=== PATIENT | female | born 1955 | race Two or more races ===

== ENCOUNTER 2016-04-15 19:33 | Emergency (ER) | payer OTHER ==
[~2016-04-15] VITALS: Ht 162.6 cm; Wt 72.6 kg
[2016-04-15] MEDS ORDERED: IV NS 0.9% 500 ML BAG IV ONE (20:00)
[2016-04-15] MEDS ORDERED: KETOROLAC TROMETHAMINE INJ 30 MG/ML VIAL IV ONE (20:00)
[2016-04-15 20:01] LABS: BASOPHILS % (AUTO) 0.4 % (0.0-2.0); DIFF TOTAL % 100 %; EOSINOPHILS # (AUTO) 0.2 /CMM (0.0-0.7); EOSINOPHILS % (AUTO) 1.9 % (0.0-6.0); HEMATOCRIT 38 % (33-45); HEMOGLOBIN 12.9 g/dL (11.5-14.8); LYMPHOCYTES # (AUTO) 3.7 /CMM (0.8-4.8); LYMPHOCYTES % (AUTO) 45.5 % (20.0-44.0); MEAN CORPUSCULAR HEMOGLOBIN 30 PG (26.0-33.0); MEAN CORPUSCULAR HGB CONC 34 g/dl (31.0-36.0); MEAN CORPUSCULAR VOLUME 87 fL (82-100); MONOCYTES # (AUTO) 0.6 /CMM (0.1-1.30); MONOCYTES % (AUTO) 6.7 % (2.0-12.0); NEUTROPHILS # (AUTO) 3.7 /CMM (1.8-8.9); NEUTROPHILS % (AUTO) 45.5 % (43.0-81.0); PLATELET COUNT (AUTO) 364 /CMM (150-450); RED BLOOD CELL COUNT(AUTO) 4.37 MIL/uL (4.0-5.2); WHITE BLOOD COUNT (AUTO) 8.2 K/uL (4.3-11.0)
[2016-04-15] MEDS ORDERED: KETOROLAC TROMETHAMINE 15 MG/ML VIAL ONE (20:04)
[2016-04-15] MEDS ORDERED: IV NS 0.9% 500 ML IV ONE (20:05)
[2016-04-15] MEDS ORDERED: IV SET PRIMARY 1 EA INFUS.SET MC ONE (20:05)
[2016-04-15 20:11] LABS: ANION GAP 10 (5-14); CALCIUM, SERUM 8.6 mg/dL (8.5-10.1); CARBON DIOXIDE 30 mmol/L (21-32); CHLORIDE 105 mmol/L (98-107); CREATININE 0.9 mg/dL (0.6-1.3); GFR 64 mL/min (>60); GLUCOSE 107 mg/dL (74-106); SODIUM SERUM 141 mmol/L (136-145); UREA NITROGEN, BLOOD 21 mg/dL (7-18)
[2016-04-15 20:15] LABS: INR 0.93 (0.87-1.13); PROTHROMBIN TIME 9.8 SECS (9.5-12.7)
[2016-04-15 20:21] LABS: TROPONIN I < 0.017 ng/mL (0.00-0.056)
[2016-04-15 21:17] VITALS: BP 110/69
== END 2016-04-15 21:17 | disposition home or self-care (01) ==
LOC: ER 19:35
DX: R07.89 Other chest pain (principal); E03.9 Hypothyroidism, unspecified
CPT/HCPCS: 36415; 71010; 80048; 84484; 85025; 85730; 93005; 96374; 99285; A4606; J1885; J7040; Z7610

== ENCOUNTER → 2017-02-05 | Emergency (ER) | payer OTHER ==
[~2017-02-05] VITALS: Ht 160 cm; Wt 73.5 kg
[~2017-02-05] MED LIST: IOHEXOL-300 100 ML VIAL IV ONE; IV NS 0.9% 250 ML IV ONE
--- NOTE | 2017-02-05 19:50 | NUR ---
PT C/O DIFFICULTY SWALLOWING, STATES "FOOD GETS STUCK AND IT HURTS A LOT." NO S/S OF FACIAL DROOPING, UNILATERAL WEAKNESS OR NUMBNESS, NO SLURRED/DELAYED SPEECH. ON ROOM AIR, ARSEN WELL. FAMILY AT BEDSIDE.
[2017-02-05 20:01] LABS: BASOPHILS % (AUTO) 0.2 % (0.0-2.0); EOSINOPHILS # (AUTO) 0.1 /CMM (0.0-0.7); EOSINOPHILS % (AUTO) 1.6 % (0.0-6.0); HEMATOCRIT 40 % (33-45); LYMPHOCYTES # (AUTO) 3.2 /CMM (0.8-4.8); MEAN CORPUSCULAR HEMOGLOBIN 29 PG (26.0-33.0); MEAN CORPUSCULAR HGB CONC 33 g/dl (31.0-36.0); MEAN CORPUSCULAR VOLUME 86 fL (82-100); MONOCYTES # (AUTO) 0.5 /CMM (0.1-1.30); NEUTROPHILS # (AUTO) 4.5 /CMM (1.8-8.9); NEUTROPHILS % (AUTO) 53.2 % (43.0-81.0); PLATELET COUNT (AUTO) 416 /CMM (150-450); RDW COEFFICIENT OF VARIATION 12.5 (11.5-15.0); RED BLOOD CELL COUNT(AUTO) 4.57 MIL/uL (4.0-5.2); WHITE BLOOD COUNT (AUTO) 8.3 K/uL (4.3-11.0)
[2017-02-05 20:11] LABS: CREATININE 0.8 mg/dL (0.6-1.3)
--- NOTE | 2017-02-05 20:38 | NUR ---
PT TAKEN TO CT VIA WHEELCHAIR.
[2017-02-05 21:41] VITALS: BP 138/88
== END | disposition home or self-care (01) ==
LOC: ER 19:33
DX: R09.82 Postnasal drip (principal); R05 Cough; R13.10 Dysphagia, unspecified; E03.9 Hypothyroidism, unspecified
CPT/HCPCS: 36415; 70491-TC; 80048-TC; 84443-TC; 85025-TC; J7050; Q9967; Z7610

== ENCOUNTER 2019-03-17 15:21 | Emergency (ER) | payer MEDICARE, OTHER ==
[~2019-03-17] VITALS: Ht 160 cm; Wt 74.8 kg
--- NOTE | 2019-03-17 16:02 | NUR ---
PT AAOX4. AMBULATORY. C/O LLQ abdominal pain since yesterday morning. denies n/v/d. VSS.
[2019-03-17] MEDS ORDERED: ONDANSETRON HCL/PF 4 MG/2 ML VIAL IVP ONE (16:30)
[2019-03-17] MEDS ORDERED: MORPHINE SULFATE INJ 2 MG/ML DISP.SYRIN IV ONE (16:30)
[2019-03-17] MEDS ORDERED: IV NS 0.9% 1,000 ML BAG IV ONE (16:30)
[2019-03-17] MEDS ORDERED: MORPHINE SULFATE INJ 4 MG/ML DISP.SYRIN ONE (16:33)
[2019-03-17] MEDS ORDERED: ONDANSETRON HCL/PF 4 MG/2 ML VIAL ONE (16:33)
[2019-03-17 16:40] LABS: BASOPHILS % (AUTO) 0.3 % (0.0-2.0); EOSINOPHILS % (AUTO) 1.3 % (0.0-6.0); HEMATOCRIT 41 % (33-45); HEMOGLOBIN 13.4 g/dL (11.5-14.8); LYMPHOCYTES # (AUTO) 2.7 /CMM (0.8-4.8); LYMPHOCYTES % (AUTO) 24.7 % (20.0-44.0); MEAN CORPUSCULAR HGB CONC 33 g/dl (31.0-36.0); MEAN CORPUSCULAR VOLUME 90 fL (82-100); MONOCYTES # (AUTO) 0.7 /CMM (0.1-1.30); NEUTROPHILS # (AUTO) 7.5 /CMM (1.8-8.9); NEUTROPHILS % (AUTO) 67.7 % (43.0-81.0); PLATELET COUNT (AUTO) 371 /CMM (150-450); RED BLOOD CELL COUNT(AUTO) 4.53 MIL/uL (4.0-5.2)
--- NOTE | 2019-03-17 16:44 | NUR ---
PHLEBOTOMIS AT BEDSIDE. URINE COLELCTED AND LABS.
[2019-03-17 16:47] LABS: CALCIUM, SERUM 8.9 mg/dL (8.5-10.1); CREATININE 0.9 mg/dL (0.6-1.3); POTASSIUM 3.8 mmol/L (3.5-5.1)
[2019-03-17 16:53] LABS: ALBUMIN 3.8 g/dL (3.4-5.0); BILIRUBIN,DIRECT 0.1 mg/dL (0.0-0.2); BILIRUBIN,TOTAL 0.2 mg/dL (0.2-1.0); TOTAL PROTEIN, SERUM 8.1 g/dL (6.4-8.2)
[2019-03-17 16:54] LABS: APPEARANCE,URINE Clear (CLEAR); BILIRUBIN,URINE Negative (NEGATIVE); BLOOD, URINE Small Ery/uL (NEGATIVE); COLOR,URINE Yellow (YELLOW); KETONES,URINE Negative (NEGATIVE); LEUKOCYTE ESTERASE ,URINE Negative (NEGATIVE); NITRITE, URINE Negative (NEGATIVE); PROTEIN,URINE Negative (NEGATIVE); UGLUCOSE Negative (NEGATIVE); UROBILINOGEN,URINE 0.2 EU/dL (0.2)
[2019-03-17 17:07] LABS: BACTERIA,URINE Few /HPF (None Seen); SQUAMOUS EPITHELIAL CELL,UR Few /HPF (None Seen); WBC,URINE 0-2 /HPF (0-3)
--- NOTE | 2019-03-17 18:03 | NUR ---
Patient discharged to home in stable condition. Written and verbal after care instructions given. Patient verbalizes understanding of instruction and RX. PT ambulatory with a steady gait. IV removed. Catheter intact and site benign. Pressure and 4x4 applied to site. No bleeding noted. PT denies pain. vss.
[2019-03-17 18:04] VITALS: BP 126/76
== END 2019-03-17 18:15 | disposition home or self-care (01) ==
LOC: ER 15:22
DX: R11.0 Nausea (principal); K57.32 Diverticulitis of large intestine without perforation or abscess without bleeding; E03.9 Hypothyroidism, unspecified; Z98.890 Other specified postprocedural states
CPT/HCPCS: 36415; 74176; 80048; 80076; 81001; 83690; 85025; 85730; 96374; 96375; 99284; J2270; J2405; J7030; 81000-TC

== ENCOUNTER 2020-11-19 17:58 | Emergency (ER) | payer MEDICARE ==
[~2020-11-19] VITALS: Ht 160 cm; Wt 79.8 kg
[2020-11-19 18:25] LABS: BASOPHILS # (AUTO) 0.1 K/uL (0.0-0.2); BASOPHILS % (AUTO) 0.5 % (0.0-2.0); EOSINOPHILS % (AUTO) 0.9 % (0.0-6.0); HEMATOCRIT 39 % (33-45); HEMOGLOBIN 12.9 g/dL (11.5-14.8); LYMPHOCYTES # (AUTO) 2.6 K/uL (0.8-4.8); LYMPHOCYTES % (AUTO) 21.6 % (20.0-44.0); MEAN CORPUSCULAR HGB CONC 33 g/dl (31.0-36.0); MEAN CORPUSCULAR VOLUME 90 fL (82-100); MONOCYTES % (AUTO) 8.3 % (2.0-12.0); NEUTROPHILS # (AUTO) 8.2 K/uL (1.8-8.9); NEUTROPHILS % (AUTO) 68.7 % (43.0-81.0); PLATELET COUNT (AUTO) 389 K/uL (150-450); RED BLOOD CELL COUNT(AUTO) 4.38 MIL/uL (4.0-5.2); WHITE BLOOD COUNT (AUTO) 11.9 K/uL (4.3-11.0)
--- NOTE | 2020-11-19 18:33 | NUR ---
Patient radha from a clinic, started having Left sided chest pain. On room air, breathing evenly and unlabored. Connected to the monitor and pulse ox. Kept comfortable, will continue to monitor accordingly.
[2020-11-19 18:42] LABS: ALANINE AMINOTRANSFERASE 26 U/L (12-78); ALBUMIN 3.6 g/dL (3.4-5.0); ALKALINE PHOSPHATASE 103 U/L (46-116); ASPARTATE AMINOTRANSFERASE 20 U/L (15-37); BILIRUBIN,DIRECT 0.1 mg/dL (0.0-0.2); BILIRUBIN,TOTAL 0.3 mg/dL (0.2-1.0); CALCIUM, SERUM 8.9 mg/dL (8.5-10.1); CARBON DIOXIDE 25 mmol/L (21-32); CHLORIDE 105 mmol/L (98-107); CREATININE 0.9 mg/dL (0.6-1.3); GLUCOSE 121 mg/dL (74-106); POTASSIUM 3.9 mmol/L (3.5-5.1); SODIUM SERUM 140 mmol/L (136-145); TOTAL PROTEIN, SERUM 7.7 g/dL (6.4-8.2); UREA NITROGEN, BLOOD 14 mg/dL (7-18)
--- NOTE | 2020-11-19 19:18 | NUR ---
report given to braxton blanchard for karlie.
[2020-11-19] MEDS ORDERED: CT SWABBABLE VALVE TRANS SET 1 EA INFUS.SET MC ONE (19:32)
[2020-11-19] MEDS ORDERED: IV NS 0.9% 250 ML IV ONE (19:32)
[2020-11-19] MEDS ORDERED: IOHEXOL-350 100 ML VIAL IV ONE (19:32)
--- NOTE | 2020-11-19 19:34 | NUR ---
PT TAKEN TO CT
--- NOTE | 2020-11-19 19:45 | NUR ---
PT RETURNED FROM CT
--- NOTE | 2020-11-19 20:46 | NUR ---
Patient discharged to home in stable condition. Written and verbal after care instructions given. Patient verbalizes understanding of instruction.
[2020-11-19 20:57] VITALS: BP 130/87
== END 2020-11-19 20:47 | disposition home or self-care (01) ==
LOC: ER 18:03
DX: R07.89 Other chest pain (principal); G43.909 Migraine, unspecified, not intractable, without status migrainosus; E03.9 Hypothyroidism, unspecified; Z98.890 Other specified postprocedural states
CPT/HCPCS: 36415; 71045; 71275; 80048; 80076; 84484; 85025; 85378; 93005; 99285; J7050; Q9967

== ENCOUNTER 2023-02-10 12:12 | Emergency (ER) | payer MEDICARE, OTHER ==
[~2023-02-10] VITALS: Ht 160 cm; Wt 78.0 kg
[2023-02-10] MEDS ORDERED: POLY10DR OP (13:07)
[2023-02-10 13:54] VITALS: BP 118/61; TEMP 97.9; O2SAT 100
== END 2023-02-10 13:55 | disposition home or self-care (01) ==
LOC: ER 12:20
DX: H10.9 Unspecified conjunctivitis (principal); G43.909 Migraine, unspecified, not intractable, without status migrainosus; E03.9 Hypothyroidism, unspecified